=== PATIENT | female | born 1980 | race Two or more races ===

== ENCOUNTER → 2018-09-09 | Outpatient (CLI) | payer OTHER ==
[~2018-09-09] MED LIST: ORPH100T PO
== END | disposition home or self-care (01) ==
LOC: PRENATAL 10:36
DX: O20.0 Threatened abortion (principal); O09.522 Supervision of elderly multigravida, second trimester

== ENCOUNTER 2018-10-30 20:28 | Outpatient (CLI) | payer OTHER ==
[2018-10-30] MEDS ORDERED: PRENATAL TABLE1 EAC1 PO (21:20)
[2018-10-30] MEDS ORDERED: ADULT ASPIRIN81 MG PO (21:21)
== END 2018-10-31 18:04 | disposition home or self-care (01) ==
LOC: EDBD 20:28 → OBS/DEL 20:28
DX: O60.03 Preterm labor without delivery, third trimester (principal); O35.8XX0 Maternal care for other (suspected) fetal abnormality and damage, not applicable or unspecified; Z34.83 Encounter for supervision of other normal pregnancy, third trimester

== ENCOUNTER 2018-11-04 13:18 | Outpatient (CLI) | payer OTHER ==
[~2018-11-04 13:18] MED LIST changes: +ADULT ASPIRIN81 MG PO; +PRENATAL TABLE1 EAC1 PO
== END 2018-11-04 13:24 | disposition home or self-care (01) ==
LOC: LAB 13:18
DX: D60.8 Other acquired pure red cell aplasias (principal); Z34.83 Encounter for supervision of other normal pregnancy, third trimester

== ENCOUNTER 2018-11-17 09:39 | Outpatient (CLI) | payer OTHER | END 2018-11-17 10:15 | disposition home or self-care (01) | LOC: PRENATAL 09:39 | DX: O26.843 Uterine size-date discrepancy, third trimester (principal); O09.213 Supervision of pregnancy with history of pre-term labor, third trimester ==

== ENCOUNTER 2018-12-31 11:36 | Outpatient (CLI) | payer OTHER | END 2018-12-31 17:25 | disposition home or self-care (01) | LOC: OBS/DEL 11:36 | DX: O47.1 False labor at or after 37 completed weeks of gestation (principal) ==

== ENCOUNTER 2019-01-02 00:56 | Outpatient (CLI) | payer OTHER | END 2019-01-02 14:28 | disposition home or self-care (01) | LOC: OBS/DEL 00:56 | DX: O26.893 Other specified pregnancy related conditions, third trimester (principal); R10.2 Pelvic and perineal pain ==

== ENCOUNTER 2019-01-03 22:56 | Outpatient (CLI) | payer OTHER | END 2019-01-04 12:53 | disposition home or self-care (01) | LOC: OBS/DEL 22:56 | DX: O47.1 False labor at or after 37 completed weeks of gestation (principal) ==

== ENCOUNTER 2019-01-07 14:00 | Inpatient (IN) | payer OTHER ==
[~2019-01-07] VITALS: Ht 172.7 cm; Wt 78.9 kg
[2019-01-13] MEDS ORDERED: FE C PLUS TABL1 EACH PO (01:47)
== END 2019-01-15 13:33 | disposition home or self-care (01) | DRG 807 ==
LOC: O/R 14:00 → OB/GYN 01-13 01:41 → LDR 01-13 01:41 → OB/GYN 01-13 14:03
PROVIDERS: ADMIT Obstetrics & Gynecology
PROC: 10E0XZZ Delivery of Products of Conception, External Approach (ICD-10-PCS; principal; 2019-01-13)
PROC: 10907ZC Drainage of Amniotic Fluid, Therapeutic from Products of Conception, Via Natural or Artificial Opening (ICD-10-PCS; 2019-01-13)
PROC: 4A1HXCZ Monitoring of Products of Conception, Cardiac Rate, External Approach (ICD-10-PCS; 2019-01-13)
DX: O80 Encounter for full-term uncomplicated delivery (principal); Z37.0 Single live birth; Z3A.39 39 weeks gestation of pregnancy

== ENCOUNTER 2020-05-23 07:52 | Emergency (ER) | payer OTHER ==
[~2020-05-23] VITALS: Ht 172.7 cm; Wt 76.2 kg
[~2020-05-23 07:52] MED LIST changes: +FE C PLUS TABL1 EACH PO
== END 2020-05-23 10:37 | disposition home or self-care (01) ==
LOC: ER 07:52
DX: B34.9 Viral infection, unspecified (principal); Z20.822 Contact with and (suspected) exposure to COVID-19

== ENCOUNTER 2020-12-20 17:24 | Emergency (ER) | payer OTHER ==
[~2020-12-20] VITALS: Ht 172.7 cm; Wt 72.6 kg
[2020-12-20] MEDS ORDERED: PRENATA CHEWAB1 EACH PO (19:12)
== END 2020-12-20 19:48 | disposition home or self-care (01) ==
LOC: ER 17:24
DX: O26.899 Other specified pregnancy related conditions, unspecified trimester (principal); Z3A.00 Weeks of gestation of pregnancy not specified; R51.9 Headache, unspecified; R07.89 Other chest pain; Z32.01 Encounter for pregnancy test, result positive

== ENCOUNTER 2021-02-18 10:38 | Outpatient (CLI) | payer OTHER ==
[~2021-02-18 10:38] MED LIST changes: +PRENATA CHEWAB1 EACH PO
== END 2021-02-18 12:45 | disposition home or self-care (01) ==
LOC: PRENATAL 10:38
PROVIDERS: ATTEND Obstetrics & Gynecology Maternal & Fetal Medicine
DX: O35.0XX1 Maternal care for (suspected) central nervous system malformation in fetus, fetus 1 (principal); O35.3XX1 Maternal care for (suspected) damage to fetus from viral disease in mother, fetus 1; O98.512 Other viral diseases complicating pregnancy, second trimester; O09.512 Supervision of elderly primigravida, second trimester; O28.1 Abnormal biochemical finding on antenatal screening of mother; Z36.89 Encounter for other specified antenatal screening; Z3A.21 21 weeks gestation of pregnancy

== ENCOUNTER 2021-06-02 00:41 | Outpatient (CLI) | payer OTHER | END 2021-06-02 08:57 | disposition home or self-care (01) | LOC: OBS/DEL 00:41 | PROVIDERS: ATTEND Obstetrics & Gynecology | DX: O47.1 False labor at or after 37 completed weeks of gestation (principal); Z3A.36 36 weeks gestation of pregnancy; Z20.822 Contact with and (suspected) exposure to COVID-19 ==

== ENCOUNTER 2021-06-21 13:45 | Inpatient (IN) | payer OTHER ==
[~2021-06-21] VITALS: Ht 172.7 cm; Wt 91.6 kg
[2021-06-25] MEDS ORDERED: DIALYVITE 800-1 EACH (06:53)
== END 2021-06-27 13:13 | disposition home or self-care (01) | DRG 807 ==
LOC: OB/GYN 06-25 06:11 → LDR 06-25 06:11 → OB/GYN 06-25 13:51
PROVIDERS: ADMIT Obstetrics & Gynecology; ATTEND Obstetrics & Gynecology
PROC: 10E0XZZ Delivery of Products of Conception, External Approach (ICD-10-PCS; principal; 2021-06-25)
PROC: 4A1HXCZ Monitoring of Products of Conception, Cardiac Rate, External Approach (ICD-10-PCS; 2021-06-25)
DX: O80 Encounter for full-term uncomplicated delivery (principal); Z37.0 Single live birth; Z20.822 Contact with and (suspected) exposure to COVID-19; Z3A.39 39 weeks gestation of pregnancy

== ENCOUNTER 2022-01-08 08:50 | Emergency (ER) | payer OTHER ==
[~2022-01-08] VITALS: Ht 172.7 cm; Wt 72.6 kg
[~2022-01-08 08:50] MED LIST changes: +DIALYVITE 800-1 EACH
== END 2022-01-08 11:32 | disposition home or self-care (01) ==
LOC: ER 08:50
DX: B34.9 Viral infection, unspecified (principal); Z20.822 Contact with and (suspected) exposure to COVID-19

== ENCOUNTER 2022-08-24 01:12 | Emergency (ER) | payer OTHER ==
[~2022-08-24] VITALS: Ht 172.7 cm; Wt 72.6 kg
== END 2022-08-24 09:40 | disposition home or self-care (01) ==
LOC: ER 01:12
DX: M94.0 Chondrocostal junction syndrome [Tietze] (principal)

== ENCOUNTER 2022-08-31 22:27 | Emergency (ER) | payer OTHER ==
[~2022-08-31] VITALS: Ht 172.7 cm; Wt 72.6 kg
[2022-09-01] MEDS ORDERED: PHENAGIL TABLE1 EACH PO (02:46)
[2022-09-01] MEDS ORDERED: DOLOGESIC 500-1 EACH PO (02:46)
== END 2022-09-01 03:02 ==
LOC: ER 22:27
DX: U07.1 COVID-19 (principal)

== ENCOUNTER 2023-06-05 06:11 | Emergency (ER) | payer OTHER ==
[~2023-06-05] VITALS: Ht 172.7 cm; Wt 80.7 kg
[~2023-06-05 06:11] MED LIST changes: +DOLOGESIC 500-1 EACH PO; +PHENAGIL TABLE1 EACH PO
[2023-06-05] MEDS ORDERED: TRAMADOL HCL 50 MG TABLET PO STA (07:53)
[2023-06-05 08:44] LABS: HEMATOCRIT 37.6 % (36.0-45.00); HEMOGLOBIN 12.5 g/dL (12.0-15.00); MEAN CELL VOLUME 86.9 fL (80.00-100.00); MEAN CORPUSCULAR HGB CONC 33.3 g/dl (32.0-36.0); PLATELET COUNT 221 K/uL (150-450); RED BLOOD COUNT 4.33 M/uL (4.00-6.00); RED CELL DISTRIBUTION WIDTH 13.4 % (11.5-14.5)
[2023-06-05 08:45] LABS: URINE APPEARANCE Clear; URINE BILIRRUBIN Negative (NEGATIVE); URINE BLOOD Trace; URINE COLOR Yellow; URINE GLUCOSE Negative (NEGATIVE); URINE LEUKOCYTE Negative; URINE NITRATE Negative; URINE PROTEIN Negative (NEGATIVE); URINE UROBILINOGEN 0.2 E.U./dl
[2023-06-05 08:46] LABS: URINE BACTERIA 229.1 uL (0.0-1933); URINE EPITHELIAL CELLS 23.4 uL (0.0-38.8); URINE RBC 5.3 uL (0.0-20.8); URINE WBC 7.1 uL (0.0-23.2)
[2023-06-05 08:53] LABS: CALCIUM 8.8 mg/dL (8.5-10.1); CREATININE SERUM 0.6 mg/dL (0.55-1.02); GFR 110.72; POTASSIUM 4.23 mEq/L (3.5-5.1)
== END 2023-06-05 12:04 | disposition home or self-care (01) ==
LOC: ER 06:11
DX: R10.2 Pelvic and perineal pain (principal)